=== PATIENT | male | born 1965 | race Two or more races ===

== ENCOUNTER 2025-01-05 08:16 | Emergency (ER) | payer OTHER ==
[~2025-01-05] VITALS: Ht 177.8 cm; Wt 90.7 kg
[2025-01-05] MEDS ORDERED: CARDIZEM CD180 M1 PO (08:47)
[2025-01-05] MEDS ORDERED: COZAAR100 MG PO (08:47)
[2025-01-05] MEDS ORDERED: CHLORTHALIDONE25 MG PO (08:48)
[2025-01-05] MEDS ORDERED: ADULT LOW DOSE81 M1 PO (08:48)
[2025-01-05] MEDS ORDERED: TOPROL XL25 M1 PO (08:48)
[2025-01-05] MEDS ORDERED: GRALISE600 MG PO (08:49)
[2025-01-05] MEDS ORDERED: NORFLEX100MG PO (10:23)
[2025-01-05] MEDS ORDERED: IBUPROFEN800 MG PO (10:23)
[2025-01-05] MEDS ORDERED: KETOROLAC TROMETHAMINE 60 MG VIAL IM ONE ×2 (10:30→10:47)
[2025-01-05] MEDS ORDERED: DEXAMETHASONE SODIUM PHOSPHATE 4 MG/ML VIAL IM ONE (10:30)
[2025-01-05] MEDS ORDERED: ORPHENADRINE CITRATE 30 MG/ML AMPUL IM ONE (10:30)
[2025-01-05] MEDS ORDERED: DEXAMETHASONE SODIUM PHOSPHATE 4 MG/ML VIAL ONE (10:47)
[2025-01-05] MEDS ORDERED: ORPHENADRINE CITRATE 30 MG/ML AMPUL ONE (10:47)
== END 2025-01-05 11:05 | disposition home or self-care (01) ==
LOC: ER 08:16
DX: M75.52 Bursitis of left shoulder (principal); I10 Essential (primary) hypertension